=== PATIENT | female | born 1975 | race Caucasian/White ===

== ENCOUNTER 2017-10-02 13:14 | Emergency (ER) | payer OTHER ==
[~2017-10-02] VITALS: Ht 172.7 cm; Wt 79.4 kg
[~2017-10-02 13:14] MED LIST: CLEOCIN HCL300 MG PO; CYMBALTA30 MG PO; FLEXERIL PO; HYDROCODONE-APA1 TA1 PO; IBUPROFEN 400400 M1 PO; INDERAL40 MG PO; MOBIC7.5 MG PO; NORCO 5-325 TA1 EACH PO; VICODIN 5-5001 EACH PO; ZPAK PO
[2017-10-02] MEDS ORDERED: IMOVAX RABIE2.5 UNIT IM (13:49)
[2017-10-02] MEDS ORDERED: AUGMENTIN 875-1 EACH PO (14:58)
[2017-10-02 15:15] VITALS: BP 148/90
== END 2017-10-02 15:16 | disposition home or self-care (01) ==
LOC: M.ERS 13:14
DX: S61.052A Open bite of left thumb without damage to nail, initial encounter (principal); F17.210 Nicotine dependence, cigarettes, uncomplicated; Z88.5 Allergy status to narcotic agent; W55.01XA Bitten by cat, initial encounter; Y93.89 Activity, other specified; Y92.89 Other specified places as the place of occurrence of the external cause; Y99.8 Other external cause status

== ENCOUNTER → 2017-10-05 | Outpatient (CLI) | payer OTHER ==
[~2017-10-05] MED LIST changes: +AUGMENTIN 875-1 EACH PO; +IMOVAX RABIE2.5 UNIT IM
[2017-10-05 14:05] VITALS: BP 117/81
--- NOTE | 2017-10-05 14:27 | NUR ---
DENIES ADVERSE REACTION TO PRIOR INJECTION OF SAME. INJECTION COMPLETED AND TOELRATED WELL. DISCHARGE INSTRUICTION REVIEWED. DENIES QUESTIONS OR NEEDS AT DISCHARGE.
== END ==
LOC: M.INFUS 13:54
DX: Z23 Encounter for immunization (principal); Z20.3 Contact with and (suspected) exposure to rabies; W55.01XA Bitten by cat, initial encounter; Y93.89 Activity, other specified; Y92.89 Other specified places as the place of occurrence of the external cause; Y99.8 Other external cause status

== ENCOUNTER → 2017-10-09 | Outpatient (CLI) | payer OTHER | LOC: M.INFUS 08:00 | DX: Z23 Encounter for immunization (principal); Z20.3 Contact with and (suspected) exposure to rabies; W55.01XD Bitten by cat, subsequent encounter ==

== ENCOUNTER → 2017-10-16 | Outpatient (CLI) | payer OTHER | LOC: M.INFUS 08:00 | DX: Z23 Encounter for immunization (principal); Z20.3 Contact with and (suspected) exposure to rabies; W55.01XD Bitten by cat, subsequent encounter ==

== ENCOUNTER 2019-03-08 22:11 | Emergency (ER) | payer OTHER ==
[~2019-03-08] VITALS: Ht 172.7 cm; Wt 79.4 kg
[2019-03-08 23:05] LABS: ABSOLUTE BASOPHILS 0.1 thou/uL (0.0-0.2); ABSOLUTE EOSINOPHILS 0.3 thou/uL (0.0-0.7); ABSOLUTE LYMPHOCYTES 1.5 thou/uL (0.8-5.3); ABSOLUTE MONOCYTES 1.1 thou/uL (0.0-1.2); BASOPHILS 1.4 %; EOSINOPHILS 4.2 %; HEMATOCRIT 41.1 % (37.0-47.0); HEMOGLOBIN 14.1 gm/dL (12.0-15.0); LYMPHOCYTES 18.7 %; MCH 32.8 pg (26.0-34.0); MCHC 34.2 g/dL (28.0-37.0); MCV 95.8 fL (80.0-100.0); MPV 8.1 fl. (7.2-11.1); NUCLEATED RBCS 0 /100WBC; PLATELET COUNT* 247 thou/uL (150-400); POLYS 61.7 %; RBC 4.29 mil/uL (4.20-5.00); RDW-CV 14.6 % (10.5-14.5); WBC 8.1 thou/uL (4.0-11.0)
[2019-03-08 23:11] LABS: CALCIUM 9.1 mg/dL (8.5-10.1); CREATININE 0.7 mg/dL (0.6-1.3); POTASSIUM 3.1 mmol/L (3.5-5.1)
[2019-03-08 23:22] LABS: ALBUMIN 3.9 g/dL (3.4-5.0); TOTAL BILIRUBIN 0.4 mg/dL (<0.1-1.0); TOTAL PROTEIN 7.8 g/dL (6.4-8.2)
--- NOTE | 2019-03-09 13:42 | EKG ---
[place] [address] ELECTROCARDIOGRAM REPORT Name: CARMINAJENNIFER Room: [facility]#: [id number] Admission: 03/08/19 Attend Phys: Discharge: 03/08/19 Date of : 73 Report #: [id number] THIS REPORT FOR: //name// [facility] ED Test Date: 2019-03-08 Test Time: 22:16:16 Pat Name: JENNIFER GREWAL Department: Room: Gender: F [employer]making Teacher: OSCAR : 1975 Requested By: Riki Jones Order Number: [id number] MD: Nakul Trinh Measurements Intervals [place] Rate: 92 P: 50 WI: 202 QRS: 65 QRSD: 105 T: 24 QT: 354 QTc: 438 Interpretive Statements Sinus rhythm Borderline prolonged WI interval No previous ECG available for comparison Electronically Signed On 03-09-2019 13:42:29 UNIT NURSE by Nakul Trinh [email or web address] <ELECTRONICALLY SIGNED> By: Nakul Trinh MD, [facility] 03/09/19 1342 2216 2216 Nakul Trinh MD, FACC /EPI
== END 2019-03-08 23:56 | disposition home or self-care (01) ==
LOC: M.ERS 22:11
PROVIDERS: Emergency Medicine
DX: R07.89 Other chest pain (principal); Z88.5 Allergy status to narcotic agent